=== PATIENT | male | born 1955 | race Caucasian/White ===

== ENCOUNTER 2023-10-28 11:49 | Emergency (ER) | payer OTHER ==
[~2023-10-28] VITALS: Ht 170.2 cm; Wt 77.1 kg
[2023-10-28 11:57] VITALS: BP_SYST 153; PULSE 100; RESP 16; TEMP 97.7; O2SAT 97
[2023-10-28] MEDS: KETOROLAC TROMETHAMINE 60 MG/2 ML VIAL IM ONE (12:47)
[2023-10-28] MEDS: HYDROcodone/ACETAMIN 5-325 MG TAB (NORCO/ VICODIN) PO ONE (12:48)
[2023-10-28] MEDS ORDERED: HYDR-3927 PO (13:41)
[2023-10-28] MEDS: MORPHINE 4 MG INJ. 4 MG/ML VIAL IM ONE (13:46)
[2023-10-28 13:53] VITALS: BP_SYST 153; PULSE 100; RESP 16; TEMP 97.7; O2SAT 97
== END 2023-10-28 13:55 | disposition home or self-care (01) ==
LOC: SED 11:49
DX: G89.29 Other chronic pain (principal); M54.50 Low back pain, unspecified; Z88.2 Allergy status to sulfonamides
CPT/HCPCS: 99284; 96372; J1885; J2270